=== PATIENT | male | born 1990 | race Caucasian/White ===

== ENCOUNTER 2016-10-14 11:33 | Emergency (ER) | payer MEDICAID ==
[~2016-10-14] VITALS: Ht 172.7 cm; Wt 123.5 kg
[~2016-10-14 11:33] MED LIST: AMOX500T PO; BACTDS PO; CEPH-443 PO; HYDR-906 PO; IBUP800T25 PO; PANT40TA4 PO
[2016-10-14 12:10] VITALS: Ht 172.7 cm; Wt 123.5 kg
--- NOTE | 2016-10-14 15:34 | ERD ---
ER Documentation Chief Complaint Date/Time DATE: 10/14/16 TIME: 15:31 Chief Complaint abscess right hip HPI 25 y/o male presents to ED for "abscess to my right hip." States that he was here 2 months ago with the same complaint and was discharged with a diagnosis abscess, given antibiotics intramuscularly and Motrin by mouth to go home. Now states that his abscess is draining and wants to be checked. Reports pain in site. Denies headache, loss of consciousness, dizziness, blurry vision, changes in vision, photophobia, facial pain, ear pain, throat pain, difficulty swallowing, neck pain, shoulder pain, chest pain, cough, hemoptysis, abdominal pain, back pain, loss of appetite, nausea, vomiting, hematochezia, diarrhea, constipation, urinary symptoms, bladder and bowel incontinences, extremity weakness, extremity tenderness, numbness or tingling sensation, difficulty walking, recent travel, recent exposure to illness, fever, chills. Allergy: NKA PMH: Denies Medications: Motrin Surgery: Denies Family history: Denies Primary Social History: "I sell hardware." Smokes less than a pack of cigarettes a month. Stop smoking medical marijuana years ago. Occasionally drinks alcohol beverages. Denies use of illegal drugs. ROS All systems reviewed and are negative except as per history of present illness. Medications Home Meds Active Scripts Hydrocodone/Acetaminophen ([place] 5-325 Tablet) 1 Each Tablet, 1 TAB PO Q6H Y for PAIN, #10 TAB Prov:YUSUF FERRARI MD 08/28/16 Ibuprofen* (Motrin*) 800 Mg Tab, 800 MG PO Q6H Y for PAIN AND OR ELEVATED TEMP, #30 TAB Prov:ARTI ANDERSON MD 08/27/16 Cephalexin* (Keflex*) 500 Mg Capsule, 500 MG PO QID for 7 Days, CAP Prov:ARTI ANDERSON MD 08/27/16 Sulfamethoxazole-Trimethoprim* (Bactrim* DS) 800-160 Mg Tab, 1 TAB PO BID for 7 Days, TAB Prov:ARTI ANDERSON MD 08/27/16 Reported Medications Amoxicillin Trihydrate (Amoxicillin) 500 Mg Tablet, 500 MG PO Q8 12/14/12 Pantoprazole* (Pantoprazole*) 40 Mg Tablet.dr, 40 MG PO BID 11/08/12 Allergies Allergies: Coded Allergies: No Known Allergy (Unverified , 08/28/16) PMhx/Soc Medical and Surgical Hx: pt denies Medical Hx, pt denies Surgical Hx History of Surgery: No Anesthesia Reaction: No Hx Neurological Disorder: No Hx Respiratory Disorders: No Hx Cardiac Disorders: No Hx Psychiatric Problems: No Hx Miscellaneous Medical Probl: No Hx Alcohol Use: Yes (10 beers/weekend last drank 2 weeks ago) Hx Substance Use: No Hx Tobacco Use: No Physical Exam Vitals Vital Signs Date Time Temp Pulse Resp B/P Pulse Ox O2 Delivery O2 Flow Rate FiO2 10/14/16 12:10 98.3 120 20 145/80 98 Physical Exam CONSTITUTIONAL: Well-appearing; well-nourished; in no apparent distress. HEAD: Normocephalic; atraumatic. EYES: Conjunctiva clear, sclera non-icteric, EOM intact. PERRL Ears: Hearing intact. EACs clear, TMs non-bulging, non-inflamed, translucent & mobile, ossicles normal appearance, No obstructions, no erythema, no discharges Nose: No obstructions. No polyps. No external lesions. Mucosa non-inflamed. No external lesions, septum and turbinates normal. No rhinorrhea. No discharges. Frontal sinus is non-tender to palpation. Maxillary sinus is non-tender to palpation. MOUTH: Moist mucous membranes, no lesion, no obstructions, no vesicles, no thrush, patent airway Throat: Uvula in midline. Right tonsil is +1 with no erythema, no exudate. Left tonsil is +1 with no erythema, no exudate. Tolerating secretions well. Good gag reflex. Patent airway. Neck: Supple, without lesions, bruits, or adenopathy. No mass. Thyroid non- enlarged and non-tender to palpation. CHEST: Symmetrical chest. Respirations even and not labored. No retractions noted. CARDIOVASCULAR: Normal S1, S2. RRR. No murmurs, gallops. RESPIRATORY: Normal chest excursion with respiration; breath sounds clear and equal bilaterally; no wheezes, rhonchi, or rales. Breathing even and unlabored. Speaking in clear, full, and complete sentences w/ ease. ABDOMEN: Normal bowel sounds normal. Soft, round, non-distended, non-guarding, no tenderness, no rebound, no organomegaly, no masses, no pulsating abdominal mass. No hernia. No peritoneal signs. : No CVA tenderness. BACK: Symmetrical shoulder. Spine is midline without deformity, tenderness. No evidence of trauma or deformity. PELVIS: Stable pelvis. No evidence of trauma or deformity. MUSCULOSKELETAL: Normal gait and station. No misalignment, asymmetry, crepitation, defects, tenderness, masses, effusions, decreased range of motion, instability, atrophy or abnormal strength or tone in the head, neck, spine, ribs , pelvis or extremities. No calf tenderness. NEUROVASCULAR: Distal pulses are present. Pedal pulse are present, equal, and normal. Capillary refills are < 2 seconds. NEUROLOGIC: Alert and oriented x4. Speaks full and clear sentences. Cranial Nerves II-XII normal. Sensation to pain, touch, and proprioception normal. Grossly unremarkable. No neurologic deficits. Romberg test is negative. PSYCHOLOGICAL: The patients mood and manner are appropriate. No hallucinations , delusions. Not SI. Not HI. Has the capacity to decide for self SKIN: Normal for age and ethnicity; warm; dry; good turgor; no apparent lesions or exudates. No rashes, hives, discoloration. Right gluteal area abscess measuring about 10 cm induration, warm to touch, redness, tenderness to light palpation. No neurovascular deficits. Results 24 hrs Current Medications Medications (Trade) Dose Ordered Sig/Stew Route PRN Reason Start Time Stop Time Status Last Admin Dose Admin Acetaminophen/ Hydrocodone Bitart ([place] (7.5-325)) 1 tab ONCE ONCE PO 10/14/16 16:00 10/14/16 16:01 DC 10/14/16 16:20 Lidocaine (Xylocaine 1% (Mdv) 20 ml) 20 ml ONCE ONCE SC 10/14/16 17:00 10/14/16 17:01 DC 10/14/16 17:07 Ceftriaxone Sodium (Rocephin) 500 mg ONCE ONCE IM 10/14/16 17:00 10/14/16 17:01 DC 10/14/16 17:09 Procedures/MDM Examination: Unremarkable examination except Right gluteal area abscess measuring about 10 cm induration, warm to touch, redness, tenderness to light palpation. No neurovascular deficits. Disease process, medical treatment was explained to the patient and family member. They verbalized understanding and agreed with the diagnostic tests, medical treatment, and follow-up care. [place]. Rocephin IM. Treatment: Sterile technique observed. Right gluteal area abscess was cleansed with Betadine and saline. Lidocaine 1% 7 cc. Incision(scalpel size 11) and drainage(drained large amount of purulent drainage) with iodoform packing about 6-7 cm in length. Dry dressing applied. No active. No neurovascular deficits . No bleeding. Re-evaluation: No active bleeding. Dry dressing. No neurovascular deficits. Consultation: None Differential diagnosis: Abscess versus cellulitis versus sepsis Medical decision makin25 y/o male presents to ED for "abscess to my right hip." States that he was here 2 months ago with the same complaint and was discharged with a diagnosis abscess, given antibiotics intramuscularly and Motrin by mouth to go home. Now states that his abscess is draining and wants to be checked. Reports pain in site. [place] tabs given. Rocephin IM given. Incision and drainage with packing. Discharged with final diagnosis of incision and drainage of abscess. Medications prescribed are the following: Keflex, Bactrim, [place] Patient and family member are made aware of the side effects and adverse reactions of the medications prescribed. Instructed on when to seek emergent and medical attention in case allergic/anaphylactic reactions or severe side effects and or adverse reactions to medications. Patient and family member verbalized understanding. Patient instructed Instructed to follow-up with his PCP in 24-48 hours. Comeback in 2 days for a wound check. Instructed to Call 911 for chest pain, shortness of breath. Advised to come back here in ED as soon as possible for severity of symptoms which includes but not limited to: any new symptoms; shortness of breath/difficulty of breathing; cardiovascular changes; severe gastrointestinal symptoms; signs and symptoms of bleeding and or infection; signs of compartment syndrome/neurovascular changes; neurological changes/deficits. Patient and family member verbalized understanding. Upon discharge, patient is alert and oriented x 4, speaks full and clear sentences, denies pain, has no neurological deficits, has no neurovascular deficits, difficulty of breathing. Breathing even and unlabored. Lung sounds are clear to auscultation. Not in distress. Appears comfortable. Ambulatory with steady gait. No signs and symptoms of bleeding at this time. Appears satisfied with care provided here in ED. Departure Condition: Good Additional Instructions: Patient instructed Instructed to follow-up with his PCP in 24-48 hours. Comeback in 2 days for a wound check. Instructed to Call 911 for chest pain, shortness of breath. Advised to come back here in ED as soon as possible for severity of symptoms which includes but not limited to: any new symptoms; shortness of breath/difficulty of breathing; cardiovascular changes; severe gastrointestinal symptoms; signs and symptoms of bleeding and or infection; signs of compartment syndrome/neurovascular changes; neurological changes/deficits. Patient and family member verbalized understanding. PANKJA YANG Oct 14, 2016 15:34
[2016-10-14] MEDS ORDERED: HYDROCODONE/APAP (7.5/325) TAB PO ONE (16:00)
[2016-10-14] MEDS ORDERED: CEFTRIAXONE 500 MG INJ IM ONE (17:00)
[2016-10-14] MEDS ORDERED: LIDOCAINE 1% (MDV) 20 ML INJ SC ONE (17:00)
[2016-10-14] MEDS ORDERED: CEPH-443 PO (18:01)
[2016-10-14] MEDS ORDERED: BACTDS PO (18:02)
[2016-10-14] MEDS ORDERED: HYDR-906 PO (18:02)
[2016-10-14 18:07] VITALS: BP 143/85; PULSE 94; RESP 18; TEMP 98.3
== END 2016-10-14 18:12 | disposition home or self-care (01) ==
LOC: FTE 11:33
DX: L02.31 Cutaneous abscess of buttock (principal); F17.210 Nicotine dependence, cigarettes, uncomplicated
CPT/HCPCS: 10061; J0696; Z7610; 96372

== ENCOUNTER 2016-10-22 11:04 | Emergency (ER) | payer MEDICAID ==
[~2016-10-22] VITALS: Wt 110.0 kg
--- NOTE | 2016-10-22 12:22 | ERD ---
ER Documentation Chief Complaint Date/Time DATE: 10/22/16 TIME: 12:21 Chief Complaint ABSCESS TO R LEG HPI This 25-year-old male presents for recheck of abscess incised and drained approximately 5 days ago. He did not make it to his follow-up today appointment. He says the gauze fell out at home. He is minimal pain no redness , bleeding or discharge. Is taking his antibiotics per ROS All systems reviewed and are negative except as per history of present illness. Medications Home Meds Active Scripts Hydrocodone/Acetaminophen ([place] 5-325 Tablet) 1 Each Tablet, 1 TAB PO Q6H Y for PAIN, #7 TAB Prov:MICHAELJOSHPANKAJ 10/14/16 Sulfamethoxazole-Trimethoprim* (Bactrim* DS) 800-160 Mg Tab, 1 TAB PO BID for 10 Days, TAB Prov:PANKAJ YANG F 10/14/16 Cephalexin* (Keflex*) 500 Mg Capsule, 500 MG PO QID for 10 Days, CAP Prov:SHARLENEILAJOSHPANKAJ F 10/14/16 Hydrocodone/Acetaminophen ([place] 5-325 Tablet) 1 Each Tablet, 1 TAB PO Q6H Y for PAIN, #10 TAB Prov:YUSUF FERRARI MD 08/28/16 Ibuprofen* (Motrin*) 800 Mg Tab, 800 MG PO Q6H Y for PAIN AND OR ELEVATED TEMP, #30 TAB Prov:ARTI ANDERSON MD 08/27/16 Cephalexin* (Keflex*) 500 Mg Capsule, 500 MG PO QID for 7 Days, CAP Prov:ARTI ANDERSON MD 08/27/16 Sulfamethoxazole-Trimethoprim* (Bactrim* DS) 800-160 Mg Tab, 1 TAB PO BID for 7 Days, TAB Prov:ARTI ANDERSON MD 08/27/16 Reported Medications Amoxicillin Trihydrate (Amoxicillin) 500 Mg Tablet, 500 MG PO Q8 12/14/12 Pantoprazole* (Pantoprazole*) 40 Mg Tablet.dr, 40 MG PO BID 11/08/12 Allergies Allergies: Coded Allergies: No Known Allergy (Unverified , 08/28/16) PMhx/Soc History of Surgery: No Anesthesia Reaction: No Hx Neurological Disorder: No Hx Respiratory Disorders: No Hx Cardiac Disorders: No Hx Psychiatric Problems: No Hx Miscellaneous Medical Probl: No Hx Alcohol Use: Yes (10 beers/weekend last drank 2 weeks ago) Hx Substance Use: No Hx Tobacco Use: No Physical Exam Vitals Vital Signs Date Time Temp Pulse Resp B/P Pulse Ox O2 Delivery O2 Flow Rate FiO2 10/22/16 11:06 98.0 78 18 128/71 99 Physical Exam Const: [] Alert, [id number]. Head: Atraumatic Eyes: Normal Conjunctiva ENT: Normal External Ears, Nose and Mouth. Neck: Full range of motion..~ No meningismus. Resp: Clear to auscultation bilaterally Cardio: Regular rate and rhythm, no murmurs Abd: Soft, non tender, non distended. Normal bowel sounds Skin: No petechiae or rashes. There is a healing abscess on his right buttock. There is no active bleeding or discharge and there is no erythema or induration or residual fluctuance. It appears to be healing satisfactorily. Back: No midline or flank tenderness Ext: No cyanosis, or edema Neur: Awake and alert Psych: Normal Mood and Affect Procedures/MDM This patient has what appears to be a satisfactorily healing abscess on his right buttock status post incision and drainage 1 week ago. We discharged home with further wound care instructions to finish the antibiotics. He may return for worsening redness, swelling, fevers, new worsening symptoms Departure Diagnosis: Primary Impression: Abscess Condition: Stable Patient Instructions: Abscess, Incision And Drainage Additional Instructions: Wound appears to be healing well. Recheck only for redness, swelling, discharge , fevers, new or worsening symptoms. Finish antibiotics. YUSUF FERRARI MD Oct 22, 2016 12:22
== END 2016-10-22 13:12 | disposition home or self-care (01) ==
LOC: FTE 11:04
DX: L02.31 Cutaneous abscess of buttock (principal)
CPT/HCPCS: 99281